=== PATIENT | female | born 1970 | race Caucasian/White ===

== ENCOUNTER 2018-07-13 09:03 | Day surgery (SDC) | payer BC ==
[2018-07-13] VITALS (10 sets, daily range): BP systolic 104–122; BP diastolic 66–81; Ht 175.3 cm; Wt 89.5 kg
[~2018-07-13] VITALS: Ht 175.3 cm; Wt 89.5 kg
[~2018-07-13 09:03] MED LIST: CELEXA20 MG PO; ZYRTEC10 MG PO
--- NOTE | 2018-07-13 09:35 | HP ---
PATIENT: ADRIANNA AUGUSTIN MEDICAL RECORD: [id number] ACCOUNT: [id number] LOCATION:[facility] : 71 ADMISSION DATE: 07/13/18 PCP: Undefined Provider HISTORY AND PHYSICAL EXAMINATION HISTORY OF PRESENT ILLNESS: Adrianna is 48 years old. She has a left parotid mass. Biopsy suggests pleomorphic adenoma. It has been enlarging and present for over 2 years. She is being admitted for left superficial parotidectomy. PAST MEDICAL HISTORY: Otherwise negative. PAST SURGICAL HISTORY: Includes breast reduction, laparoscopic surgery for endometriosis. CURRENT MEDICATIONS: Naproxen, citalopram. ALLERGIES: SULFA DRUGS. PHYSICAL EXAMINATION: GENERAL: Normal. FACE: Normal. EYES: Normal. EARS: Canals and TMs are normal. NOSE: No masses, polyps or drainage. ORAL CAVITY AND OROPHARYNX: Tongue protrudes in the midline. Pharynx is normal. NECK: She has a left tail of the parotid mass about 2.5 cm in size, firm. CHEST: Clear. CARDIOVASCULAR: Regular rate and rhythm, no murmur. EXTREMITIES: Normal. Pathology suggests pleomorphic adenoma on cytology. IMPRESSION: Left parotid mass. PLAN: Left superficial parotidectomy. TRANSINT:[id number] Voice Confirmation ID: [id number] DOCUMENT ID: [id number] NOREEN LIRA MD at 0935 CC: [id number] DICTATION DATE: 07/10/18 1020 MATERIAL CONTROL SPECIALIST: 07/10/18 1044 REG [facility] [address] [place] [address]
[2018-07-13 09:36] LABS: HEMATOCRIT 39.1 % (36.0-48.0); HEMOGLOBIN 13.2 g/dL (12-16); MCHC 33.8 g/dL (31.0-37.0); MCV 94.7 fL (80.0-100.0); MEAN PLATELET VOLUME 10.3 fL (7.4-10.4); RBC 4.13 10x6/uL (4.00-5.40); WBC 5.7 10x3/uL (4.8-10.8)
[2018-07-13 11:33] LABS: HCG URINE NEGATIVE (NEGATIVE)
--- NOTE | 2018-07-13 20:15 | NUR ---
A&O X 4. FAMILY AT BEDSIDE. INCISION TO LEFT SIDE OF FACE NEAR EAR, DOWN TO BASE OF NECK IS CLEAN AND INTACT. ANA DRAIN IS COMPRESSED. PT REPORTS DECREASE IN PAIN, BUT ONSET OF NAUSEA WITHOUT VOMITTING. WILL CONTINUE TO MONITOR.
--- NOTE | 2018-07-14 02:50 | NUR ---
EYES CLOSED RESPIRATIONS WITH EASE AND UNLABORED. SR UP X2 CALL LIGHT WITHIN REACH.
[2018-07-14 04:57] VITALS: BP 104/54
[2018-07-14 08:00] VITALS: BP 102/75
--- NOTE | 2018-07-14 08:23 | OP ---
PATIENT NAME: LUCAS AUGUSTIN MEDICAL RECORD: [id number] :72 LOCATION:[id number] ADMISSION DATE: SURGEON: CHELE LIRA MD DATE OF OPERATION: 07/13/2018 PREOPERATIVE DIAGNOSIS: Left parotid mass. POSTOPERATIVE DIAGNOSIS: Left parotid mass. PROCEDURE: Left superficial parotidectomy. SURGEON: Chele Lira MD ANESTHESIA: General orotracheal. BLOOD LOSS: Less than 5 cc. SPECIMENS: Left superficial parotid and mass. 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 DRAINS: A single J-P through a separate stab incision inferior to the wound. COMPLICATIONS: None. DISPOSITION: Recovery, stable. DESCRIPTION OF PROCEDURE: She was brought to the operating room, placed in the supine position, sedated and intubated by anesthesia. She was not paralyzed then. Head was turned to the right. The area of injection was cleaned with alcohol and injected with less than 1 cc of 1% lidocaine with 1:100,000 epinephrine on a long 27-gauge needle. She was prepped and draped in the usual sterile fashion, exposing the mouth and the eye. An incision was made with a #15 blade. This was taken down with sternocleidomastoid inferiorly and tragus superiorly. Flaps were elevated anteriorly with mets and double prong skin hooks as retraction. A single 2-0 silk stitch was placed in the earlobe for retraction suture. The sternocleidomastoid was exposed with tip of the mastoid, the posterior belly of digastric, and the tragal cartilage; and then dissected anteriorly into the gland; and from the mastoid, I exposed the facial nerve. The mass was inferior, so the most inferior branch was followed. This went actually underneath the tumor mass, which was about 3 to 3.5 cm in size. The marginal branch went underneath it as well and then some superior branches to the mid face or above it. The gland was divided above the middle branches to separate the parotid and the mass completely following the other nerves beneath the tumor. Once that was removed and divided anteriorly, the specimen was sent for frozen, which returned pleomorphic adenoma. Superior portions of the parotid gland were divided out, removed, and sent for specimen as well. A nerve stimulator on lowest setting was used to touch the base of the pad. As all facial branches were working normally, that was removed. The wound was irrigated with saline. A drain was placed through a separate stab incision inferior to the wound. Subcutaneous layers were closed with interrupted 5-0 Vicryl. 5-0 and 6-0 Prolenes were used to close the incision. Mupirocin was used on the incision. Drain stitch was applied. She was awakened, extubated, and transported to recovery in good condition. No complications. Facial nerve function was intact and normal. OPERATIVE REPORT [id number] LUCAS AUGUSTIN TRANSINT:[id number] Voice Confirmation ID: [id number] DOCUMENT ID: [id number] CHELE LIRA MD at 0823 CC: [id number] DICTATION DATE: 07/13/18 171 INTERIOR WALL ASSEMBLER: 07/13/18 1902 REG [facility] [address] [place] [address]
--- NOTE | 2018-07-14 09:15 | NUR ---
INSURANCE SALESPERSON NOTE- PATIENT NOT CO OF ANY PAIN. READY TO BE DISCHARGED.
[2018-07-14] MEDS ORDERED: HYDROCODON-ACE1 EAC7 PO (09:22)
[2018-07-14] MEDS ORDERED: KEFLEX500 MG PO (09:22)
[2018-07-14] MEDS ORDERED: ZOFRAN ODT4 MG/UDTAB PO (09:23)
--- NOTE | 2018-07-14 10:00 | NUR ---
IV DC WITH CATH INTACT, DC INSTUCTIONS GIVEN FAMILY AT BEDSIDE PRESCPITONS GIVEN TO PT, NO QUESTIONS/CONCERNS EXPRESSED, LEFT VIA WHEELCHAIR VIA HOPITAL STAFF, VIA PRIVATE VECHILE IN STABLE CONDITON
== END 2018-07-14 10:03 | disposition home or self-care (01) ==
LOC: D.OPS 09:03 → D.PAN 10:00 → D.MS 17:41 → D.OPS 07-14 10:03
PROVIDERS: Anesthesiology; Otolaryngology
DX: D11.0 Benign neoplasm of parotid gland (principal)